=== PATIENT | female | born 1985 | race African-American/Black ===

== ENCOUNTER 2025-06-25 17:08 | Emergency (ER) | payer MEDICAID ==
[~2025-06-25] VITALS: Ht 167.6 cm; Wt 59.0 kg
[2025-06-25 17:09] VITALS: O2SAT 100
[2025-06-25 18:34] LABS: BASOPHILS % 0.7 % (0.0-2.0); EOSINOPHILS % 1.8 % (0.0-5.0); HEMATOCRIT. 38.0 % (36.0-48.0); HEMOGLOBIN. 12.3 g/dL (12.0-16.0); LYMPHOCYTES % 40.4 % (20.0-50.0); MEAN PLATELET VOLUME 8.2 fl (7.4-10.4); MONOCYTES % 9.3 % (2.0-8.0); NEUTROPHILS % 47.8 % (40.0-76.0); PLATELET 250 x1000/uL (130-400); RED BLOOD CELL COUNT 4.46 mill/uL (4.2-5.4); RED CELL DISTRIBUTION WIDTH 22.4 % (11.6-14.6)
[2025-06-25 18:35] LABS: ADD RBC MORPHOLOGY YES
[2025-06-25 18:55] LABS: HCG SCREEN NEGATIVE
[2025-06-25 18:59] LABS: CREATININE 0.6 mg/dL (0.6-1.0)
[2025-06-25 19:00] LABS: TROPONIN I HIGH SENSITIVITY < 4 ng/L (3.0-34); UREA NITROGEN BLOOD 16 mg/dL (9-23)
[2025-06-25 19:01] LABS: ASPARTATE AMINOTRANSFERASE 14 IU/L (<34)
[2025-06-25 19:02] LABS: BILIRUBIN DIRECT 0.1 mg/dL (<=3.0); BILIRUBIN TOTAL 0.5 mg/dL (0.1-1.0); PROTEIN TOTAL 7.7 g/dL (6.0-8.3)
[2025-06-25 19:06] LABS: PLATELET ESTIMATE NORMAL
[2025-06-25] MEDS: SODIUM CHLORIDE 0.9% 1,000 ML IV ONE (20:27)
[2025-06-25] MEDS: KETOROLAC 15MG/ML VIAL IV ONE (20:27)
[2025-06-25] MEDS: DIPHENHYDRAMINE 50MG/ML VIAL IV ONE (20:27)
[2025-06-25 21:10] LABS: TROPONIN I HIGH SENSITIVITY < 4 ng/L (3.0-34)
[2025-06-25] MEDS ORDERED: IBUP-1455 MT (21:26)
[2025-06-25] MEDS ORDERED: KETO10TA2 MT (21:33)
[2025-06-25 21:45] VITALS: BP 120/65; PULSE 78; RESP 16; TEMP 36.8; O2SAT 98
== END 2025-06-25 21:49 | disposition home or self-care (01) ==
LOC: ER 17:08
DX: R07.89 Other chest pain (principal); R51.9 Headache, unspecified; I95.9 Hypotension, unspecified; Z79.899 Other long term (current) drug therapy
CPT/HCPCS: 99291; 96374; 96361; 96375; 80076; 80048; 84703; 85025; 84484; 36415; 71045; 93005; J1885; J1200; J7030